=== PATIENT | male | born 1980 | race Two or more races ===

== ENCOUNTER → 2020-04-02 14:12 | Outpatient (BNVA) | payer OTHER, SELFPAY | PROVIDERS: PCP Internal Medicine; Referring Provider Internal Medicine; Visit Provider Internal Medicine Gastroenterology | DX: Z76.89 Persons encountering health services in other specified circumstances (principal) ==

== ENCOUNTER 2020-04-05 10:13 | Outpatient (REF) | payer OTHER, SELFPAY ==
[2020-04-05 11:32] LABS: MANUAL DIFF FLAG NO
[2020-04-05 11:47] LABS: Basophils Percent Auto 0.5 % (0-2); Eosinophils Absolute Auto 0.1 X10*3/uL (0.0-0.4); Eosinophils Percent Auto 1.5 % (0-4); Hematocrit 43.5 % (42-52); Hemoglobin 14.3 g/dl (14.0-18.0); Imm Gran Abs Auto 0.01 X10*3/uL (0.00-0.03); Imm Gran Pct Auto 0.2 % (0.0-0.4); Lymphocytes Absolute Auto 1.1 X10*3/uL (1.2-4.9); Lymphocytes Percent Auto 28.1 % (20-40); Mean Corpuscular HGB Conc 32.9 g/dl (31.0-36.0); Mean Corpuscular Hemoglobin 27.7 pg (27.0-33.0); Mean Corpuscular Volume 84.3 fL (80-98); Monocytes Absolute Auto 0.5 X10*3/uL (0.1-1.2); Monocytes Percent Auto 12.3 % (2-11); Neutrophils Absolute Auto 2.3 X10*3/uL (2.0-8.3); Neutrophils Percent Auto 57.4 % (45-73); Platelet Count 336 X10*3/uL (160-400); Red Blood Count 5.16 X10*6/uL (4.60-5.80); Red Cell Distribution Width 12.2 % (11.0-16.0); White Blood Count 4.1 X10*3/uL (4.8-10.8)
[2020-04-05 11:50] LABS: Glucose Urine UA NEG (NEG); Leukocyte Esterase Urine NEG (NEG); Nitrite Urine NEG (NEG); PH 7.5 (5.0-8.0); Specific Gravity - Urine 1.015 (1.005-1.025); Urine Blood NEG (NEG); Urine Ketones NEG (NEG); Urine Protein NEG (NEG-TRACE)
[2020-04-05 11:53] LABS: Appearance Urine HAZY; Color Urine YELLOW
[2020-04-05 12:12] LABS: Alanine Aminotransferase 23 U/L (0-40); Albumin Level 4.5 g/dL (3.5-5.0); Alkaline Phosphatase 75 U/L (39-117); Anion Gap 13 (12-20); Aspartate Amino Transferase 21 U/L (5-37); Bilirubin Direct 0.3 mg/dL (0.0-0.5); Bilirubin Total 0.8 mg/dL (0.0-1.0); Blood Urea Nitrogen 13 mg/dL (9-16); C Reactive Protein 0.12 mg/dL (< or = 0.50); Calcium 9.8 mg/dL (8.4-10.2); Carbon Dioxide 32 mmol/L (22-29); Chloride 101 mmol/L (96-108); Estimated Glomerular Filt Rate > 60; Glucose Random 88 mg/dL (60-115); Potassium 4.5 mmol/l (3.3-5.1); Sodium 141 mmol/L (135-145); Total Protein 7.7 g/dL (6.5-8.0)
[2020-04-05 12:21] LABS: Ferritin 201 ng/mL (20-250)
[2020-04-05 12:33] LABS: Hepatitis A Antibody IgG Nonreactive (Nonreactive); ~Hepatitis A Antibody IgG 0.55 S/CO (0.00-0.99)
[2020-04-05 12:37] LABS: HBc Num1 0.07 S/CO (0.00-0.79); HBsAGNum1 0.23 S/CO (0.00-0.99); Hepatitis B Core Antibody Nonreactive (Nonreactive); Hepatitis B Surface Antigen Negative (Negative)
[2020-04-05 12:38] LABS: HBS Num1 > 1000.00 mIU/mL (0-7.99); ~HepC Num1 0.07 S/CO (0.00-0.79); ~Hepatitis B Surface Antibody REACTIVE (Nonreactive); ~Hepatitis C Antibody Nonreactive (Nonreactive)
[2020-04-08 12:47] LABS: Transglutaminase IgA 1 U/mL
[2020-05-03 16:25] LABS: CT PCR NOT DETECTED (Not Detect.); NG PCR NOT DETECTED (Not Detect.)
== END 2020-04-05 10:14 | disposition home or self-care (01) ==
LOC: HO.LAB 10:13
PROVIDERS: PCP Internal Medicine; Visit Provider Internal Medicine Gastroenterology
DX: K85.90 Acute pancreatitis without necrosis or infection, unspecified (principal); R10.33 Periumbilical pain; R30.0 Dysuria
CPT/HCPCS: 36415; 80048; 80076; 81003; 82728; 83516; 85025; 86140; 86704; 86706; 86708; 86803; 87340; 87491; 87591

== ENCOUNTER 2020-04-30 17:47 | Outpatient (REF) | payer OTHER, SELFPAY ==
[2020-04-30 18:07] LABS: MANUAL DIFF FLAG NO
[2020-04-30 18:11] LABS: Basophils Percent Auto 0.5 % (0-2); Eosinophils Absolute Auto 0.1 X10*3/uL (0.0-0.4); Eosinophils Percent Auto 1.4 % (0-4); Hemoglobin 13.5 g/dl (14.0-18.0); Imm Gran Abs Auto 0.01 X10*3/uL (0.00-0.03); Imm Gran Pct Auto 0.2 % (0.0-0.4); Lymphocytes Absolute Auto 1.7 X10*3/uL (1.2-4.9); Lymphocytes Percent Auto 30.9 % (20-40); Mean Corpuscular HGB Conc 32.9 g/dl (31.0-36.0); Mean Corpuscular Hemoglobin 27.8 pg (27.0-33.0); Mean Corpuscular Volume 84.5 fL (80-98); Mean Platelet Volume 10.5 fL (9.4-12.4); Monocytes Absolute Auto 0.8 X10*3/uL (0.1-1.2); Monocytes Percent Auto 15.1 % (2-11); Neutrophils Absolute Auto 2.9 X10*3/uL (2.0-8.3); Neutrophils Percent Auto 51.9 % (45-73); Platelet Count 316 X10*3/uL (160-400); Red Blood Count 4.85 X10*6/uL (4.60-5.80); White Blood Count 5.6 X10*3/uL (4.8-10.8)
== END 2020-04-30 17:48 | disposition home or self-care (01) ==
LOC: HO.LAB 17:47
PROVIDERS: Absent Provider Internal Medicine Gastroenterology; PCP Internal Medicine; Visit Provider Internal Medicine
DX: D72.821 Monocytosis (symptomatic) (principal)
CPT/HCPCS: 36415; 85025

== ENCOUNTER 2020-05-03 13:23 | Outpatient (REF) | payer OTHER, SELFPAY ==
[2020-05-11 21:28] LABS: Calprotectin, Fecal 21 mcg/g
== END 2020-05-03 13:24 | disposition home or self-care (01) ==
LOC: HO.LNP 13:23
PROVIDERS: Visit Provider Internal Medicine Gastroenterology
DX: R10.33 Periumbilical pain (principal); K85.90 Acute pancreatitis without necrosis or infection, unspecified
CPT/HCPCS: 83993; 87338

== ENCOUNTER → 2020-07-30 15:05 | Outpatient (BNVA) | payer OTHER, SELFPAY | PROVIDERS: PCP Internal Medicine; Visit Provider Internal Medicine Gastroenterology ==

== ENCOUNTER → 2020-08-20 08:35 | Outpatient (BNVA) | payer OTHER, SELFPAY | PROVIDERS: PCP Internal Medicine; Visit Provider Internal Medicine Gastroenterology ==

== ENCOUNTER 2020-09-09 08:09 | Outpatient (REF) | payer OTHER, SELFPAY ==
--- NOTE | ~2020-09-09 | US_ITS ---
EXAMINATION: US ABDOMEN COMPLETE CLINICAL INFORMATION: Periumbilical pain, abdominal pain. History of pancreatitis. COMPARISON: CT abdomen with intravenous contrast dated 10/12/2018. TECHNIQUE: Real-time imaging of the abdominal viscera. Ultrasound of the right lower quadrant was also performed. FINDINGS: PANCREAS: Normal. ABDOMINAL AORTA: The proximal, mid, and distal segments are normal in caliber. INFERIOR VENA CAVA: Visualized portions are normal. LIVER: Liver echotexture is slightly increased probably representing fatty infiltration. The liver is normal in size. The liver contour is normal. No focal hepatic lesion. There is no intrahepatic biliary duct dilatation seen. GALLBLADDER: Normal. The gallbladder is physiologically distended without evidence of stones, sludge, polyps, wall thickening or pericholecystic fluid. COMMON BILE DUCT: Normal in caliber measuring 0.29 cm in diameter. RIGHT KIDNEY: Normal. No hydronephrosis. No renal calculi or focal parenchymal lesions. The kidney measures 11.7 cm in maximum dimension. LEFT KIDNEY: Normal. No hydronephrosis. No renal calculi or focal parenchymal lesions. The kidney measures 12.3 cm in maximum dimension. SPLEEN: Normal. The spleen measures 10.7 cm in maximum dimension. FREE FLUID: None. US/US abdomen complete IMPRESSION: Slightly echogenic liver probably representing fatty infiltration otherwise unremarkable exam.
== END 2020-09-09 08:10 | disposition home or self-care (01) ==
LOC: HO.US 08:09
PROVIDERS: Visit Provider Internal Medicine Gastroenterology
DX: R10.33 Periumbilical pain (principal); K85.90 Acute pancreatitis without necrosis or infection, unspecified
CPT/HCPCS: 76700

== ENCOUNTER → 2020-12-31 11:09 | Outpatient (BNVA) | payer OTHER, SELFPAY | PROVIDERS: PCP Internal Medicine; Visit Provider Internal Medicine Gastroenterology ==

== ENCOUNTER 2021-04-09 16:56 | Outpatient (REF) | payer OTHER, SELFPAY ==
--- NOTE | ~2021-04-09 | XR_ITS ---
EXAMINATION: XR CHEST CLINICAL INFORMATION: Chest pain COMPARISON: None TECHNIQUE: 2 views of the chest were obtained. FINDINGS: No significant abnormality is noted involving the heart, lungs, mediastinum, bony thorax or soft tissues. XR/XR chest 2V IMPRESSION: Unremarkable examination.
== END 2021-04-09 16:57 | disposition home or self-care (01) ==
LOC: HO.XRAY 16:56
PROVIDERS: Visit Provider Internal Medicine
DX: R07.89 Other chest pain (principal)
CPT/HCPCS: 71046

== ENCOUNTER 2021-07-14 09:08 | Outpatient (REF) | payer OTHER, SELFPAY ==
[2021-07-14 10:53] LABS: Lipase 39 U/L (8-78)
== END 2021-07-14 09:09 | disposition home or self-care (01) ==
LOC: HO.LAB 09:08
PROVIDERS: PCP Internal Medicine; Visit Provider Nurse Practitioner Acute Care
DX: R10.9 Unspecified abdominal pain (principal)
CPT/HCPCS: 36415; 83690

== ENCOUNTER 2021-09-01 09:58 | Outpatient (REF) | payer OTHER, SELFPAY ==
--- NOTE | ~2021-09-01 | US_ITS ---
EXAMINATION: US COMPLETE ABDOMEN WITH LIVER ELASTOGRAPHY CLINICAL INFORMATION: Severe right abdominal pain. COMPARISON: None. TECHNIQUE: Real-time imaging of the abdominal viscera. Noninvasive ultrasound liver fibrosis assessment is performed using [employer] ElastPQ point quantification shear wave elastography (2D-SWE) with a C5-2 MHz transducer. Multiple elastography samples are obtained. FINDINGS: PANCREAS: The pancreas is obscured by overlying gas. ABDOMINAL AORTA: The proximal, middle, and distal aortic segments are normal in caliber. INFERIOR VENA CAVA: Visualized portions are normal. LIVER: The liver demonstrates normal size, contour and mildly increased echogenicity. No focal lesion or intrahepatic biliary duct dilatation. The right lobe measures 14.9 cm in length. The left lobe measures 9.0 cm in length. Portal flow is hepatopedal. Shear wave liver elastography median stiffness is 2.06 m/s (reference: normal median stiffness is 1.3 m/s or less). IQR/median stiffness to assess sampling precision is 0.15 (reference: good quality data set is IQR/median stiffness of 0.15 or less). GALLBLADDER: Normal. The gallbladder is physiologically distended without evidence of stones, sludge, polyps, wall thickening or pericholecystic fluid. COMMON BILE DUCT: Normal in caliber measuring 0.3 cm in diameter. RIGHT KIDNEY: Normal. No hydronephrosis. No renal calculi or focal parenchymal lesions. The kidney measures 13.1 cm in maximum dimension. LEFT KIDNEY: Normal. No hydronephrosis. No renal calculi or focal parenchymal lesions. The kidney measures 13.0 cm in maximum dimension. SPLEEN: Normal. The spleen measures 10.9 cm in maximum dimension. FREE FLUID: None. US/US abdomen comp w elastography IMPRESSION: 1. Mild hepatic steatosis. No focal lesion seen. 2. The rest of the abdominal ultrasound is unremarkable. 3. Liver elastography: Median liver stiffness measures 2.06 m/s which correlates to cACLD suggestive. REFERENCE: Society of Radiologists in Ultrasound Liver Stiffness Thresholds (2020): LIVER STIFFNESS THRESHOLDS: *Liver Stiffness equal or less than 1.3 m/s: High probability of being normal. *Liver Stiffness less than 1.7 m/s: In the absence of other known clinical signs, rules out compensated advanced chronic liver disease. *Liver Stiffness 1.7-2.1 m/s: Suggestive of compensated advanced chronic liver disease but need further test for confirmation. *Liver Stiffness over 2.1 m/s: Rules in compensated advanced chronic liver disease. *Liver Stiffness over 2.4 m/s: Suggestive of clinically significant portal hypertension. QUALITY OF DATA SET: *IQR/Median value equal or less than 0.15 implies a quality data set. *IQR/Median value over 0.15 implies a poor quality data set. SIGNIFICANT CHANGE FROM PRIOR EXAM: Significant change if liver stiffness measurement is 10% or greater from prior exam. OTHER CONSIDERATIONS: The stage of liver fibrosis may be overestimated in the setting of acute hepatitis, liver inflammation, elevated liver function tests, hepatic vascular congestion, obstructive cholestasis, non-fasting state, and infiltrative diseases such as amyloidosis and lymphoma. In some patients with NAFLD, the liver stiffness thresholds for compensated advanced chronic liver disease may be lower. In causes other than viral hepatitis and NAFLD, liver stiffness thresholds are not well established.
== END 2021-09-01 09:59 | disposition home or self-care (01) ==
LOC: HO.US 09:58
PROVIDERS: PCP Nurse Practitioner Acute Care; Visit Provider Nurse Practitioner Acute Care
DX: R10.31 Right lower quadrant pain (principal)
CPT/HCPCS: 76705; 76981

== ENCOUNTER 2021-12-16 08:05 | Outpatient (REF) | payer OTHER, SELFPAY ==
--- NOTE | 2021-12-16 08:10 | ECG_ITS ---
Test Reason : CP Blood Pressure : / mmHG Vent. Rate : 062 BPM Atrial Rate : 062 BPM P-R Int : 216 ms QRS Dur : 090 ms QT Int : 396 ms P-R-T Axes : 034 052 026 degrees QTc Int : 401 ms Sinus rhythm with 1st degree A-V block Otherwise normal ECG No previous ECGs available Referred By: Ciara Moctezuma Electronically Signed By:JEFE LOUISE
[2021-12-16 08:21] LABS: MANUAL DIFF FLAG NO
[2021-12-16 09:11] LABS: Basophils Percent Auto 0.5 % (0-2); Eosinophils Absolute Auto 0.1 X10*3/uL (0.0-0.4); Eosinophils Percent Auto 2.1 % (0-4); Hemoglobin 13.5 g/dl (14.0-18.0); Lymphocytes Absolute Auto 1.5 X10*3/uL (1.2-4.9); Lymphocytes Percent Auto 35.3 % (20-40); Mean Corpuscular HGB Conc 32.9 g/dl (31.0-36.0); Mean Corpuscular Hemoglobin 27.7 pg (27.0-33.0); Mean Corpuscular Volume 84.2 fL (80.0-98.0); Monocytes Absolute Auto 0.6 X10*3/uL (0.1-1.2); Monocytes Percent Auto 13.1 % (2-11); Neutrophils Absolute Auto 2.1 x10*3/uL (2.0-8.3); Platelet Count 354 X10*3/uL (160-400); Red Blood Count 4.87 X10*6/uL (4.60-5.80); Red Cell Distribution Width 12.5 % (11.0-16.0); White Blood Count 4.2 X10*3/uL (4.8-10.8)
[2021-12-16 09:43] LABS: Alanine Aminotransferase 23 U/L (0-40); Albumin Level 4.4 g/dL (3.5-5.0); Alkaline Phosphatase 77 U/L (39-117); Anion Gap 14 (12-20); Aspartate Amino Transferase 30 U/L (5-37); Bilirubin Total 0.9 mg/dL (0.0-1.0); Blood Urea Nitrogen 11 mg/dL (9-16); Calcium 9.7 mg/dL (8.4-10.2); Carbon Dioxide 31 mmol/L (22-29); Chloride 102 mmol/L (96-108); Cholesterol 161 mg/dL; Estimated Glomerular Filt Rate > 60; Glucose Fasting 96 mg/dL (60-99); HDL Cholesterol 46 mg/dL; LDL Cholesterol Calculated 105 mg/dl; Potassium 4.5 mmol/L (3.3-5.1); Sodium 142 mmol/L (135-145); Total Protein 7.5 g/dL (6.5-8.0); Triglycerides 50 mg/dL
[2021-12-16 10:04] LABS: Vitamin D 25-OH Total 22.4 ng/mL (>30)
[2021-12-16 10:14] LABS: Folate 14.2 ng/mL (> or = 4.0); Vitamin B12 381 pg/mL (200-900)
== END 2021-12-16 08:06 | disposition home or self-care (01) ==
LOC: HO.LAB 08:05
PROVIDERS: PCP Internal Medicine; Visit Provider Internal Medicine
DX: Z00.00 Encounter for general adult medical examination without abnormal findings (principal); R07.89 Other chest pain; D64.9 Anemia, unspecified; E53.8 Deficiency of other specified B group vitamins; E55.9 Vitamin D deficiency, unspecified; E78.5 Hyperlipidemia, unspecified
CPT/HCPCS: 36415; 80053; 80061; 82306; 82607; 82746; 85025; 93005

== ENCOUNTER 2022-04-30 12:40 | Outpatient (REF) | payer OTHER, SELFPAY ==
[2022-04-30 17:57] LABS: HIV AB/AG Nonreactive (Nonreactive); HIV Num 1 0.07 S/CO (0.00-0.99)
[2022-05-01 11:04] LABS: ~HepC Num1 0.07 S/CO (0.00-0.79); ~Hepatitis C Antibody Nonreactive (Nonreactive)
== END 2022-04-30 12:41 | disposition home or self-care (01) ==
LOC: HO.LNP 12:40
PROVIDERS: Visit Provider Pathology Anatomic Pathology & Clinical Pathology
DX: Z11.4 Encounter for screening for human immunodeficiency virus [HIV] (principal); Z77.21 Contact with and (suspected) exposure to potentially hazardous body fluids
CPT/HCPCS: 86803

== ENCOUNTER 2022-10-31 08:25 | Outpatient (REF) | payer OTHER, SELFPAY | END 2022-10-31 08:26 | disposition home or self-care (01) | LOC: HO.LAB 08:25 | PROVIDERS: PCP Internal Medicine; Visit Provider Internal Medicine | DX: R10.13 Epigastric pain (principal); D64.9 Anemia, unspecified; E53.8 Deficiency of other specified B group vitamins; E78.5 Hyperlipidemia, unspecified; E55.9 Vitamin D deficiency, unspecified | CPT/HCPCS: 36415; 80053; 80061; 82306; 82607; 82746; 83540; 85025 ==

== ENCOUNTER 2023-11-22 12:16 | Outpatient (AMB) | payer OTHER, SELFPAY ==
--- NOTE | 2023-11-22 12:20 | MHC.PC.OV ---
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 morphine Adverse Reaction (Intermediate, Verified 11/22/23 12:31) Weakness Medication List - Last Reconciled 11/22/23 by Ciara Moctezuma MD No Known Home Meds Tobacco use date assessed: 11/22/23 Dental Screening Dental Screen Date: 11/22/23 Did you have a dental visit in the last 12 months?: No Did you have a dental problem in the last 6 months where you did not have access to dental care?: No Was dental information given to patient?: Patient has dentist HPI HPI Comments History of Present Illness Details This is a 43-year-old male complaining of headaches that happens at least 4 times a week. Headaches are bilateral and declines any neurological deficit associated with it. He does not sleep well. I will start him on amitriptyline at bedtime and use sumatriptan as needed. Also complains of low back pain radiating to the right leg and associated with right leg numbness. Has not tried physical therapy therefore I will send him. No fever, bowel or bladder incontinence. He is obese with a BMI of 34.9 and was advised to diet and exercise. [facility] Medical History Epigastric pain Chest wall pain B12 deficiency Hypovitaminosis D Laceration of finger of left hand Neck pain Monocytosis Surgical History Hx of circumcision History of lumbar fusion History of appendectomy Family History Father Diabetes Mother Diabetes Paternal Grandfather CAD (coronary artery disease) Pacemaker Maternal Aunt Breast cancer Social History Household Members: Spouse and Family Housing: House Are you a primary day care assistant to a significant other at home: No Do you presently have visiting nurse or other home services: No Alcohol intake: former Patient Tobacco Use Status: Former Tobacco user Tobacco use type: Cigarette e-Cigarette/Vaping Use: Never Used Second Hand Smoke Exposure: No service: No Current occupational status: employed Current occupational exposures/hazards: No Cognitive needs: No Hearing needs: No Vision needs: No Questionnaire PHQ-9 Over the last 2 weeks, how often have you been bothered by any of the following problems? 1. Little interest or pleasure in doing things: not at all 2. Feeling down, depressed, or hopeless: not at all 3. Trouble falling or staying asleep, or sleeping too much: not at all 4. Feeling tired or having little energy: not at all 5. Poor appetite or overeating: not at all 6. Feeling bad about yourself - or that you are a failure or have let yourself or your family down: not at all 7. Trouble concentrating on things, such as reading the newspaper or watching television: not at all 8. Moving or speaking so slowly that other people could have noticed. Or the opposite - being so fidgety or restless that you have been moving around a lot more than usual: not at all 9. Thoughts that you would be better off or of hurting yourself in some way: not at all Total score: 0 Depression Screening Interpretation: Negative Depression Screening Done: Yes 58108 - PHQ-9 Billing: Yes Source: Developed by Drs. Thang Dobson, Jyoti Parkinson, Rosendo Xavier and colleagues, with an educational manan from [employer]. Thrive Questionnaire Date Thrive assessed: 11/22/23 I am a: Patient What is your living situation today?: I have a steady place to live Within the past 12 months, did the food you bought not last and you didn't have the money to get more?: Never true Within the past 12 months, did you worry whether your food would run out before you got money to buy more?: Never true Do you have trouble paying for medicines?: No Do you have trouble getting transportation to medical appointments?: No Do you have trouble paying your heating and electricity bill?: No Do you have trouble taking care of your child, family member or friend?: No Do you have trouble with day-to-day activities such as bathing, preparing meals, shopping, managing finances, etc.?: No Are you currently unemployed and looking for a job?: No Are you interested in more education?: No Please select the resources that you would like help with: None Currently or been in a relationship where the following occur: No concerns reported THRIVE Score: 0 AUDIT C Alcohol Use Questionnaire (AUDIT-C) 1. How often do you have a drink containing alcohol?: Never Total Score: 0 Score Reviewed/Action Taken: No LETTY-7 AMB Questionnaire LETTY-7 Date LETTY - 7 assessed: 11/22/23 Feeling nervous, anxious, or on edge: 0 = Not at all Not being able to stop or control worryin = Not at all Worrying too much about different things: 0 = Not at all Trouble relaxin = Not at all Being so restless that it is hard to sit still: 0 = Not at all Becoming easily annoyed or irritable: 0 = Not at all Feeling afraid as if something awful might happen: 0 = Not at all Total LETTY-7 score (0-4 normal; 5-9 mild; 10-14 moderate; 15-21 severe): 0 Source: Developed by Drs. Thang Dobson, Jyoti Parkinson, Rosendo Xavier and colleagues, with an educational manan from [employer]. LETTY-7 Assessment Billing LETTY-7 Assessment Tool: LETTY-7 Assessment 94995 Review of Systems Const All systems reviewed & are unremarkable except as noted in HPI and below Card Denies chest pain at rest, Denies chest pain with activity, Denies edema, Denies irregular heart rhythm, Denies claudication, Denies dyspnea, Denies dyspnea on exertion, Denies orthopnea, Denies paroxysmal nocturnal dyspnea and Denies slow heart rate Resp Denies cough, Denies dyspnea and Denies dyspnea on exertion Musc Reports back pain Physical exam (Primary Care) Vital Signs: Last Vital Signs BP 118/82 11/22/23 12:24 BMI result Body Mass Index 34.9 BMI Assessment/Plan discussion: High BMI High, discussed plan: lifestyle, weight reduction, dietary and physical activity Tobacco/Smoking Status: Tobacco use Status Tobacco use date assessed 11/22/23 11/22/23 12:28 Patient Tobacco Use Status Former Tobacco user 11/22/23 12:28 Tobacco use type Cigarette 11/22/23 12:28 e-Cigarette/Vaping Use Never Used 11/22/23 12:28 PHQ-9: PHQ-9 Score PHQ-9: Total score 0 11/22/23 12:35 Depression Screening Interpretation: Negative Thrive Assessment: Date of Thrive Assessment Date Thrive assessed 11/22/23 11/22/23 12:28 Currently or been in a relationship where the following occur: No concerns reported Resp Effort & Inspection: normal respiratory effort Auscultation: clear to auscultation bilaterally Cardio Jugular venous distension: no JVD Rate: regular rate Rhythm: regular rhythm Heart sounds: S1 normal heart sound present and S2 normal heart sound present Extrem General: Yes full ROM Assessment and Plan Assessment & Plan (1) Headache: Code(s): R51.9 - Headache, unspecified Qualifiers: Headache type: tension-type Headache chronicity pattern: chronic headache Intractability: not intractable Qualified Code(s): G44.229 - Chronic tension-type headache, not intractable Plan: Start sumatriptan as needed. (2) Right sided sciatica: Code(s): M54.31 - Sciatica, right side Plan: Start nabumetone as needed. Start physical therapy. (3) Insomnia: Code(s): G47.00 - Insomnia, unspecified Plan: Start amitriptyline. (4) Obesity (BMI 30.0-34.9): Code(s): E66.9 - Obesity, unspecified Plan: Start diet and exercise. BMI goal is less than 30. Orders: Orders PT Evaluation and Treatment Today M54.31 - Sciatica, right side Medications: New nabumetone 750 mg PO BID PRN 60 tabs 0RF pain 30 days amitriptyline 10 mg PO BEDTIME 30 tabs 3RF 30 days sumatriptan succinate do not exceed 8 doses per 24 hrs 25 mg PO Q2-4H PRN 9 tabs 2RF migraine headache 30 days Coding Level of Care Code Est Pt Level 4 (77338) Complex EM visit Add On G2211 Diagnoses Chronic tension-type headache, not intractable G44.229 Headache type: tension-type Headache chronicity pattern: chronic headache Intractability: not intractable Right sided sciatica M54.31 Insomnia G47.00 Obesity (BMI 30.0-34.9) E66.9 Additional Codes LETTY-7 Assessment Billing - LETTY-7 Assessment Tool: LETTY-7 Assessment 07328 ([id number]) Time Spent (min) 22
[2023-11-22 12:24] VITALS: BP 118/82; BMI 34.9
== END 2023-11-22 12:41 | disposition home or self-care (01) ==
PROVIDERS: PCP Internal Medicine; Visit Provider Internal Medicine
DX: G44.229 Chronic tension-type headache, not intractable (principal); M54.31 Sciatica, right side; G47.00 Insomnia, unspecified; E66.9 Obesity, unspecified; Z68.34 Body mass index [BMI] 34.0-34.9, adult
CPT/HCPCS: 99214; G2211

== ENCOUNTER 2024-03-20 16:27 | Outpatient (AMB) | payer OTHER, SELFPAY ==
--- NOTE | 2024-03-20 16:48 | MHC.PC.OV ---
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 morphine Adverse Reaction (Intermediate, Verified 03/20/24 17:13) Weakness Medication List - Last Reconciled 03/20/24 by Ciara Moctezuma MD No Known Home Meds Tobacco use date assessed: 11/22/23 Dental Screening Dental Screen Date: 11/22/23 HPI HPI Comments History of Present Illness Details The patient is a 43-year-old male presenting for his physical exam. He complaints of chest pain localized to the middle of the chest and is experienced intermittently, including during activities such as walking. The patient describes the sensation as feeling like the heart jumps. There is no specific history of trauma or injury associated with the onset. The chest pain does not have an apparent pattern and occurs unpredictably. The patient also reports difficulty with sleep, including frequent awakenings during the night and trouble falling back asleep, leading to daytime somnolence. Severely dozed off while watching TV, sitting and reading, as a passenger in a car and lying down after lunch with [place] Score Scale of 12. The patient previously underwent surgical interventions, including a lumbar fusion in 2008 and an appendectomy in 1999. There are no current medications, and an allergy to an unspecified medication (potentially omeprazole ) is noted. Family history includes diabetes in both parents and breast cancer in a maternal aunt. Previously, the patient engaged in smoking and alcohol consumption but has since discontinued both. - BMI assessed at 35.2, indicating obesity class 2; advised weight reduction. - Plan for electrocardiogram and Holter monitor to assess cardiac concerns. - Recommended fasting laboratories to include cholesterol and glucose levels. [facility] Medical History Epigastric pain Chest wall pain B12 deficiency Hypovitaminosis D Laceration of finger of left hand Neck pain Monocytosis Surgical History Hx of circumcision History of lumbar fusion History of appendectomy Family History Father Diabetes Mother Diabetes Paternal Grandfather CAD (coronary artery disease) Pacemaker Maternal Aunt Breast cancer Social History Household Members: Spouse and Family Housing: House Are you a primary career manager to a significant other at home: No Do you presently have visiting nurse or other home services: No Alcohol intake: former Patient Tobacco Use Status: Former Tobacco user Tobacco use type: Cigarette e-Cigarette/Vaping Use: Never Used Second Hand Smoke Exposure: No service: No Current occupational status: employed Current occupational exposures/hazards: No Cognitive needs: No Hearing needs: No Vision needs: No Questionnaire Thrive Questionnaire Date Thrive assessed: 11/22/23 LETTY-7 AMB Questionnaire LETTY-7 Date LETTY - 7 assessed: 11/22/23 Source: Developed by Drs. Thang Dobson, Jyoti Parkinson, Rosendo Xavier and colleagues, with an educational manan from [employer]. Review of Systems Const All systems reviewed & are unremarkable except as noted in HPI and below Card Denies chest pain at rest, Denies chest pain with activity, Denies edema, Denies irregular heart rhythm, Denies claudication, Denies dyspnea, Denies dyspnea on exertion, Denies orthopnea, Denies paroxysmal nocturnal dyspnea and Denies slow heart rate Resp Denies cough, Denies dyspnea and Denies dyspnea on exertion GI Denies abdominal pain, Denies change in bowel habits, Denies excessive flatus, Denies nausea and Denies vomiting Physical exam (Primary Care) Vital Signs: Last Vital Signs BP 120/82 03/20/24 16:49 BMI result Body Mass Index 35.2 BMI Assessment/Plan discussion: High BMI High, discussed plan: lifestyle, weight reduction, dietary and physical activity Tobacco/Smoking Status: Tobacco use Status Tobacco use date assessed 11/22/23 03/20/24 17:01 Patient Tobacco Use Status Former Tobacco user 03/20/24 17:01 Tobacco use type Cigarette 03/20/24 17:01 e-Cigarette/Vaping Use Never Used 03/20/24 17:01 Thrive Assessment: Date of Thrive Assessment Date Thrive assessed 11/22/23 03/20/24 17:01 HENMT Head: Yes normal to inspection, Yes normocephalic and Yes atraumatic Ears: external ears normal Eyes General: appearance normal, both eyes and all related structures Eyelids: Yes eyelids normal Conjunctivae: conjunctivae normal Neck Neck: Yes normal visual inspection and Yes supple Resp Effort & Inspection: normal respiratory effort Auscultation: clear to auscultation bilaterally Cardio Jugular venous distension: no JVD Rate: regular rate Rhythm: regular rhythm Heart sounds: S1 normal heart sound present and S2 normal heart sound present GI Inspection: Yes normal to inspection Palpation (GI): Soft to palpation and nontender Auscultation: normal bowel sounds Skin General skin exam: no rashes or lesions noted Neuro General: no focal motor deficits Extrem General: Yes full ROM Psych Appearance: grossly normal Office Procedures Flu Questionnaire Does the patient have a severe egg allergy?: No Does the patient have severe life threatening allergies?: No Does the patient have a fever or illness today?: No Has the patient ever had Guillain-[place] Syndrome?: No Has the patient ever had any past reaction to a flu shot?: No Immunizations Fluarix Triv [id number] (PF) 45 mcg (15 mcg x 3)/0.5 mL IM syringe Performing Provider: Ciara Moctezuma MD [facility] Administered by: CARSON Oh on 03/20/24 17:02 Dose Route Admin Location Dispensed Lot Number Expiration Date NDC Short Order Cook 0.5 mL IM Left Deltoid 0.5 mL [id number] 10/23/24 20796-316-46 [facility] Given Date VIS Provided VIS Publication Date 03/20/24 Single Vaccine 20 Eligibility Eligibility Date Funding Source Not [facility] Eligible 03/20/24 Private Coding Level of Care Code Est Pt Level 3 (39374) Est Pt Prev Care 40-64y(47170) Diagnoses Physical exam Z00.00 Palpitations R00.2 Daytime somnolence R40.0 Time Spent (min) 31 Assessment & Plan Assessment & Plan (1) Physical exam: Code(s): Z00.00 - Encounter for general adult medical examination without abnormal findings Category: Medical (2) Palpitations: Code(s): R00.2 - Palpitations Category: Medical (3) Daytime somnolence: Code(s): R40.0 - Somnolence Category: Medical Plan - Obesity, Class 2: Discussed importance of weight management to lower BMI below 30, including potential impacts on overall health. - Chest Pain: Ordered an electrocardiogram and 24-hour Holter monitor to investigate arrhythmias or other cardiac causes. Further evaluation if abnormalities detected. - Insomnia: Plan to evaluate sleep hygiene and pattern further; consider potential interventions once cardiac workup is complete. Patient was informed and verbally consented to the use of an ambient scribe for clinic note documentation during this visit. During the visit, I acknowledged the patient's concerns regarding chest pain and explained the potential need to rule out cardiac causes via an electrocardiogram and Holter monitoring. We discussed the potential relationship between his weight and cardiovascular health, emphasizing the benefits of weight management. For sleep disturbances, I suggested initial focus on potential causes related to cardiac issues, with further exploration of sleep-related concerns to follow. Orders: Orders Influenza [id number] Immunization Today Z23 - Encounter for immunization Comprehensive [place]. Panel Fast Today Z00.00 - Encounter for general adult medical examination without abnormal findings ECG 12 lead EKG Today R00.2 - Palpitations RT home sleep study Today R40.0 - Somnolence Complete Blood Count Auto Diff Today D64.9 - Anemia, unspecified IRON PROFILE Today D64.9 - Anemia, unspecified Lipid Panel Today Z00.00 - Encounter for general adult medical examination without abnormal findings ECG holter monitor 24 hour Today R00.2 - Palpitations Patient Instructions: - Schedule appointments for fasting laboratory tests, electrocardiogram, and 24-hour Holter monitoring. - Use [id number] hydrogen peroxide ear drops as directed to manage earwax build-up. - Return for follow-up to discuss test results and assess progress on lifestyle modifications. - Monitor and log episodes of chest pain, including activity at onset, for future evaluation.
[2024-03-20 16:49] VITALS: BP 120/82; BMI 35.2
== END 2024-03-20 17:23 | disposition home or self-care (01) ==
PROVIDERS: PCP Internal Medicine; Visit Provider Internal Medicine
DX: Z00.00 Encounter for general adult medical examination without abnormal findings (principal); R00.2 Palpitations; R40.0 Somnolence

== ENCOUNTER → 2024-03-20 16:27 | Outpatient (BNVA) | payer OTHER, SELFPAY | PROVIDERS: PCP Internal Medicine; Visit Provider Internal Medicine | DX: Z00.00 Encounter for general adult medical examination without abnormal findings (principal); Z23 Encounter for immunization; R00.2 Palpitations; R40.0 Somnolence; E66.812 Obesity, class 2; Z68.35 Body mass index [BMI] 35.0-35.9, adult; R07.9 Chest pain, unspecified; G47.00 Insomnia, unspecified | CPT/HCPCS: 90471; 90656 ==

== ENCOUNTER 2024-03-25 09:14 | Outpatient (REF) | payer OTHER, SELFPAY ==
[2024-03-25 09:25] LABS: MANUAL DIFF FLAG NO
[2024-03-25 09:35] LABS: Basophils Percent Auto 0.6 % (0-2); Eosinophils Absolute Auto 0.1 X10*3/uL (0.0-0.4); Eosinophils Percent Auto 2.2 % (0-4); Hematocrit 42.1 % (42.0-52.0); Hemoglobin 14.3 g/dl (14.0-18.0); Imm Gran Abs Auto 0.02 X10*3/uL (0.00-0.03); Imm Gran Pct Auto 0.4 % (0.0-0.4); Lymphocytes Absolute Auto 1.6 X10*3/uL (1.2-4.9); Lymphocytes Percent Auto 32.5 % (20-40); Mean Corpuscular Hemoglobin 28.4 pg (27.0-33.0); Mean Corpuscular Volume 83.5 fL (80.0-98.0); Mean Platelet Volume 10.2 fL (9.4-12.4); Monocytes Absolute Auto 0.7 X10*3/uL (0.1-1.2); Monocytes Percent Auto 13.7 % (2-11); Neutrophils Absolute Auto 2.5 x10*3/uL (2.0-8.3); Neutrophils Percent Auto 50.6 % (45-73); Platelet Count 317 X10*3/uL (160-400); Red Blood Count 5.04 X10*6/uL (4.60-5.80); Red Cell Distribution Width 12.4 % (11.0-16.0)
[2024-03-25 10:04] LABS: Alanine Aminotransferase 40 U/L (0-40); Albumin Level 4.3 g/dL (3.5-5.0); Alkaline Phosphatase 77 U/L (39-117); Anion Gap 12 (12-20); Aspartate Amino Transferase 33 U/L (5-37); Bilirubin Total 0.7 mg/dL (0.0-1.0); Blood Urea Nitrogen 14 mg/dL (9-16); Calcium 8.9 mg/dL (8.4-10.2); Carbon Dioxide 29 mmol/L (22-29); Chloride 104 mmol/L (96-108); Cholesterol 155 mg/dL (<200); Estimated Glomerular Filt Rate > 60; Glucose Fasting 99 mg/dL (60-99); HDL Cholesterol 41 mg/dL (>40); Iron 125 mcg/dL (45-160); LDL Cholesterol Calculated 98 mg/dL (<100); Percent Iron Saturation 41 % (15-50); Potassium 3.8 mmol/L (3.3-5.1); Sodium 141 mmol/L (135-145); Total Iron Binding Capacity 308 mcg/dL (228-428); Total Protein 7.3 g/dL (6.5-8.0); Triglycerides 83 mg/dL (<150); Unsaturated Iron Binding 183 ug/dL
== END 2024-03-25 09:15 | disposition home or self-care (01) ==
LOC: HO.LAB 09:14
PROVIDERS: PCP Internal Medicine; Visit Provider Internal Medicine
DX: Z00.00 Encounter for general adult medical examination without abnormal findings (principal); D64.9 Anemia, unspecified
CPT/HCPCS: 36415; 80053; 80061; 83540; 85025

== ENCOUNTER → 2024-03-27 06:05 | Outpatient (REF) | payer OTHER, SELFPAY ==
--- NOTE | 2024-03-27 06:15 | ECG_ITS ---
Test Reason : palps Blood Pressure : / mmHG Vent. Rate : 064 BPM Atrial Rate : 064 BPM P-R Int : 230 ms QRS Dur : 094 ms QT Int : 398 ms P-R-T Axes : 042 050 016 degrees QTc Int : 410 ms Sinus rhythm with 1st degree A-V block Otherwise normal ECG When compared with ECG of 16-DEC-2021 08:08, No significant change was found Referred By: Ciara Moctezuma Electronically Signed By:Chapito Sanchez
== END ==
LOC: HO.CARD 06:05
PROVIDERS: PCP Internal Medicine; Visit Provider Internal Medicine
DX: R00.2 Palpitations (principal)
CPT/HCPCS: 93005

== ENCOUNTER → 2024-03-27 06:15 | Outpatient (BNV) | payer OTHER, SELFPAY | PROVIDERS: PCP Internal Medicine; Visit Provider Internal Medicine Cardiovascular Disease | DX: R00.2 Palpitations (principal) | CPT/HCPCS: 93010 ==

== ENCOUNTER → 2024-05-11 15:59 | Outpatient (REF) | payer OTHER, SELFPAY | LOC: HO.SL 15:59 | PROVIDERS: PCP Internal Medicine; Visit Provider Internal Medicine | DX: R40.0 Somnolence (principal); G47.33 Obstructive sleep apnea (adult) (pediatric) | CPT/HCPCS: 95806 ==

== ENCOUNTER → 2024-05-11 16:08 | Outpatient (BNV) | payer OTHER, SELFPAY | PROVIDERS: PCP Internal Medicine; Visit Provider Internal Medicine | DX: G47.33 Obstructive sleep apnea (adult) (pediatric) (principal) | CPT/HCPCS: 95806 ==

== ENCOUNTER → 2024-05-22 14:52 | Outpatient (REF) | payer OTHER, SELFPAY ==
--- OUTSIDE RECORDS SUMMARY | 2024-05-22 19:12 | XMS_ITS | Clinical Summary ---
[facility] Organization [facility] Address [address] [place] [address] Care Team Providers Care Piece Presser Name Role Phone Ciara Moctezuma MD Primary Care Provider [phone] Surgical History Surgery Date Site/Laterality Comments APPENDECTOMY PROCEDURE: DE APPENDECTOMY OTHER SURGICAL HISTORY PROCEDURE: HISTORY OTHER; COMMENT: disc surgery, low back 2 years ago CIRCUMCISION, PRIMARY PROCEDURE: HISTORICAL CIRCUMCISION OTHER SURGICAL HISTORY PROCEDURE: ---- OTHER ----; COMMENT: hist endo/colo and was normal Medical History Medical History Date Comments Sleep apnea 04/08/2011 DX:Sleep apnea Obesity, unspecified 04/08/2011 DX:Obesity, unspecified Family History Relation Name Status Comments Brother Alive Father Alive DM and alcoholi sm Mother Alive DM Social History Tobacco Use Types Packs/Day Years Used Date Smoking Tobacco: Never Smokeless Tobacco: Never Alcohol Use Standard Drinks/Week Comments No 0 (1 standard drink = 0.6 oz pur e alcohol) Sex and Gender Information Value Date Recorded Sex Assigned at Not on file Gender Identity Not on file Sexual Orientation Not on file Obstetrics History Plan of Treatment Health Maintenance Due Date Last Done Comments Hepatitis B Vaccines (1 of 3 - 19+ 3-dose series) 1998 DTaP,Tdap,and Td Vaccines (2 - Td or Tdap) 06/04/2021 06/04/2011 COVID-19 Vaccine ( - 2023-2 5 season) 2023 Influenza Vaccine (#1) 2023 02/26/2012 HIB Vaccines Aged Out No longer eligi ble based on patient's age to complete this topic HPV Vaccines Aged Out No longer eligi ble based on patient's age to complete this topic Hepatitis A Vaccines Aged Out No long er eligible based on patient's age to complete this topic IPV Vaccines Aged Out No longer eligi ble based on patient's age to complete this topic MMR Vaccines Aged Out No longer eligi ble based on patient's age to complete this topic Meningococcal ACWY Vaccine Aged Out N o longer eligible based on patient's age to complete this topic Pneumococcal Vaccine: Pediat rics (0 to 5 Years) and At-Risk Patients (6 to 64 Years) Aged Out No longer eligi ble based on patient's age to complete this topic RSV Immunization Patients Un cyndi 20 months Aged Out No longer eligible b ased on patient's age to complete this topic Varicella Vaccines Aged Out No longer eligible based on patient's age to complete this topic Care Teams Piece Presser Relationship Specialty Start Date End Date Ciara Moctezuma MD [address] [place] [address] , [address] [facility] D/B/A: [facility] [place] PCP - General 03/18/21
--- OUTSIDE RECORDS SUMMARY | 2024-05-22 19:12 | XMS_ITS | Clinical Summary ---
Demographics Address [address] [place] [address] Home Phone Preferred Language Martiniquais; Castilian Marital Status Unknown Mosque Affiliation Unknown Race Black or Neris rican Ethnic Group or Author Organization [facility] Address [address] [place] [address] Support Name Relationship Address Phone Magalys Greenwood Spouse [address] [place] [address] Care Team Providers Care Receiving Associate Store Name Role Phone Bhargavi Desai PA-C Primary Care Provider [phone] Source Comments PLEASE NOTE, if this patient is a minor, it may be UNLAWFUL to discuss sensitive information that is contained in these records (such as FAMILY PLANNING, MENTAL HEALTH or SUBSTANCE ABUSE) with the minor patient's parent or other person without the patient's specific authorization.[facility] Medications doncdts-wqfagy-l rotease (PANOKASE) 8,000-30,000- 30,000 unit per tabletIndication s:Pancreatitis Take 1 Tab by mouth 3 (three) times daily with meals. 30 Tab 6 06/27/2013 Active ranitidine (ZANTAC) 150 mg tabletIndication s:Gastritis Take 1 Tab by mouth 2 (two) times daily. 60 Tab 3 06/27/2013 Active Active Problems Problem Noted Date Diagnosed Date Pancreatitis 06/27/2013 Overview (06/27/2013): He was hospitalized in [facility] in 2012 for this Also has been seen in [facility] for same reason Social History Tobacco Use Types Packs/Day Years Used Date Smoking Tobacco: Never Alcohol Use Standard Drinks/Week Comments No 0 (1 standard drink = 0.6 oz pur e alcohol) Social Connections Answer Date Recorded Social Connections and Isolation 0 12/17/2018 Financial Resource Strain Answer Date R ecorded Financial Resource Strain 0 2018 Stress Answer Date Recorded Stress 0 12/17/2018 Physical Activity Answer Date Recorded Physical Activity 0 12/17/2018 Food Insecurity Answer Date Recorded Food 0 12/17/2018 Transportation Needs Answer Date Record ed Transportation 0 12/17/2018 Housing Stability Answer Date Recorded Housing 0 12/17/2018 Safety and Environment Answer Date Benjamin rded Safety 0 12/17/2018 Utilities Answer Date Recorded Utilities 0 12/17/2018 Employment Answer Date Recorded Employment 0 12/17/2018 Sex and Gender Information Value Date Recorded Sex Assigned at Not on file Legal Sex Male 11:49 AM PDT Gender Identity Not on file Sexual Orientation Not on file Last Filed Vital Signs Vital Sign Reading Time Taken Comments Blood Pressure 128/76 06/27/2013 4:14 PM EST Pulse 68 06/27/2013 4:14 PM EST Temperature 37.1 ??C (98.7 ??F) 06/27/2013 4:07 PM ES T Respiratory Rate 16 06/27/2013 4:07 PM EST Oxygen Saturation - - Inhaled Oxygen Concentration - - Weight 100.2 kg (221 lb) 06/27/2013 4:07 PM EST Height 175 cm (5' 8.9 ) 06/27/2013 4:07 PM EST Body Mass Index 32.73 06/27/2013 4:07 PM EST Plan of Treatment Not on file Insurance [facility] [place] MEDICAID Care Teams Receiving Associate Store Relationship Specialty Start Date End Date Bhargavi Desai PA-C [address] [place] [address] PCP - General 06/21/18
== END ==
LOC: HO.CARD 14:52
PROVIDERS: PCP Internal Medicine; Visit Provider Internal Medicine
DX: R00.2 Palpitations (principal)
CPT/HCPCS: 93225

== ENCOUNTER → 2024-05-22 14:55 | Outpatient (BNV) | payer OTHER, SELFPAY | PROVIDERS: PCP Internal Medicine; Visit Provider Internal Medicine Cardiovascular Disease | DX: R00.1 Bradycardia, unspecified (principal) | CPT/HCPCS: 93244 ==

== ENCOUNTER 2024-08-02 14:31 | Outpatient (AMB) | payer OTHER, SELFPAY ==
[2024-08-02 14:46] VITALS: BP 120/70; PULSE 78; BMI 35.2
--- NOTE | 2024-08-02 14:46 | MHC.OFFVIS ---
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 morphine Adverse Reaction (Intermediate, Verified 03/20/24 17:13) Weakness Medication List - Last Reconciled 08/02/24 by Ramiro Larson MD CPAP autoPAP 6-20 cmH2O HPI Comments Details: Hunter is here for consultation regarding palpitations. She does not have any known cardiac issues. No history of any coronary artery disease or myocardial infarction or cardiomyopathy or in fact any other cardiac issues. He states that he gets sensations of chest fluttering off and on. He can happen any time. He feels as though his heartbeats fast for few minutes and then gets better. No angina or shortness of breath. He has obstructive sleep apnea and he states he uses CPAP. He has grandfather has a pacemaker and hence he is worried about his current symptoms. [facility] Medical History Epigastric pain Chest wall pain B12 deficiency Hypovitaminosis D Laceration of finger of left hand Neck pain Monocytosis Surgical History Hx of circumcision History of lumbar fusion History of appendectomy Family History Father Diabetes Mother Diabetes Paternal Grandfather CAD (coronary artery disease) Pacemaker Maternal Aunt Breast cancer Social History Household Members: Spouse and Family Housing: House Are you a primary medicare coordinator to a significant other at home: No Do you presently have visiting nurse or other home services: No Alcohol intake: former Patient Tobacco Use Status: Former Tobacco user Tobacco use type: Cigarette e-Cigarette/Vaping Use: Never Used Second Hand Smoke Exposure: No service: No Current occupational status: employed Current occupational exposures/hazards: No Cognitive needs: No Hearing needs: No Vision needs: No Review of Systems Const Denies weakness ENT Denies dizziness Card Denies chest pain, Denies chest pain with activity, Denies syncope, Denies rapid heart rate, Denies pedal edema, Denies edema, Denies leg edema, Denies lightheadedness, Reports palpitations, Denies dyspnea, Denies dyspnea on exertion and Denies orthopnea Resp Denies cough, Denies dyspnea and Denies dyspnea on exertion GI Denies hematochezia and Denies change in stool character Musc Denies abnormal gait, Denies muscle cramps, Denies muscle weakness, Denies numbness, Denies radiating pain into limb and Denies tingling Neuro Denies abnormal gait, Denies dizziness, Denies syncope, Denies numbness, Denies tingling and Denies weakness Endo Reports palpitations Physical Exam Vital Signs: Last Vital Signs Pulse 78 08/02/24 14:46 BP 120/70 08/02/24 14:46 BMI result Body Mass Index 35.2 Const General: comfortable and no acute distress Orientation/consciousness: patient oriented x3 HEENT Other: Unremarkable Head: Yes normal to inspection Neck Neck: Yes normal visual inspection Chest Chest palpation & inspection: normal inspection of the chest Resp Auscultation: clear to auscultation bilaterally Cardio Palpation: normal PMI Heart sounds: S1 normal heart sound present, S2 normal heart sound present, no gallops, no murmurs and no rubs GI Palpation (GI): Soft to palpation Back/Spine/Pelvis Other: unremarkable Skin General skin exam: no rashes or lesions noted Neuro General: patient oriented x3 Extrem General: Yes normal to inspection Psych Mental Status: mental status grossly normal Assessment & Plan Assessment & Plan (1) Palpitations: Code(s): R00.2 - Palpitations Category: Medical Plan In the recent EKG, underlying rhythm is sinus at 64/Min; NC prolongation to 130 milliseconds; normal corrected QT; no significant ST-T changes. He had a 24 hour Holter monitor and that shows underlying sinus rhythm without any significant arrhythmias. Very rare PVCs. Sleep study reported to have severe obstructive sleep apnea. Because of his weight and sleep apnea, he has had increased risk for cardiac arrhythmias. Could be supraventricular or ventricular but more likely to be supraventricular. He states that he did not really have much palpitations during the 24 hour Holter monitor. Hence we can repeat this for 2 weeks. Echocardiogram for cardiac function. Based on the findings, we will plan further care. Patient agrees with this plan. Discussed using degree clerk. Orders: Orders CA echo transthoracic complete Today R00.2 - Palpitations ECG 14 day holter monitor Today R00.2 - Palpitations Coding Level of Care Code New Pt Level 4 (49033) Complex EM visit Add On G2211 Diagnoses Palpitations R00.2
--- OUTSIDE RECORDS SUMMARY | 2024-08-02 16:44 | XMS_ITS | Clinical Summary ---
Demographics Address [address] [place] [address] Home Phone Preferred Language Niuean; Castilian Marital Status Unknown Adventism Affiliation Unknown Race Black or Neris rican Ethnic Group or Author Organization [facility] Address [address] [place] [address] Support Name Relationship Address Phone Magalys Greenwood Spouse [address] [place] [address] Care Team Providers Care Pilot Teacher Name Role Phone Bhargavi Desai PA-C Primary Care Provider [phone] Source Comments PLEASE NOTE, if this patient is a minor, it may be UNLAWFUL to discuss sensitive information that is contained in these records (such as FAMILY PLANNING, MENTAL HEALTH or SUBSTANCE ABUSE) with the minor patient's parent or other person without the patient's specific authorization.[facility] Medications aheoxii-csvuwm-t rotease (PANOKASE) 8,000-30,000- 30,000 unit per tabletIndication s:Pancreatitis (HHS-HCC) Take 1 Tab by mouth 3 (three) times daily with meals. 30 Tab 6 06/27/2013 Active ranitidine (ZANTAC) 150 mg tabletIndication s:Gastritis Take 1 Tab by mouth 2 (two) times daily. 60 Tab 3 06/27/2013 Active Active Problems Problem Noted Date Diagnosed Date Pancreatitis (HHS-HCC) 06/27/2013 Overview (06/27/2013): He was hospitalized in [facility] in 2013 for this Also has been seen in [facility] ER for same reason Social History Tobacco [...] Plan of Treatment Not on file Insurance [facility] MEDICAID Care Teams Pilot Teacher Relationship Specialty Start Date End Date Bhargavi Desai PA-C [address] [place] [address] [facility] - General 06/21/18
--- OUTSIDE RECORDS SUMMARY | 2024-08-02 16:44 | XMS_ITS | Clinical Summary ---
Author Organization [facility] it[facility] Address [address] [place] [address] Care Team Providers Care Bench Repair Technician Name Role Phone Ciara Moctezuma MD Primary Care Provider [phone] Surgical History Surgery Date Site/Laterality Comments APPENDECTOMY PROCEDURE: OR APPENDECTOMY OTHER SURGICAL HISTORY PROCEDURE: HISTORY OTHER; [...] at Not on file Legal Sex Male 4:55 AM EST Gender Identity Not on file Sexual Orientation [...] patient's age to complete this topic Meningococcal B Vaccine Aged Out No l onger eligible based on patient's age to complete [...] age to complete this topic Care Teams Bench Repair Technician Relationship Specialty Start Date End Date Ciara Moctezuma MD [address] [place] [address] , [address] [place] [address] Physician Associ D/B/A: [facility] [place] PCP - General 03/18/21
== END 2024-08-02 15:07 | disposition home or self-care (01) ==
LOC: HO.HCS 14:31
PROVIDERS: PCP Internal Medicine; Visit Provider Internal Medicine
DX: R00.2 Palpitations (principal)
CPT/HCPCS: 99204; G2211

== ENCOUNTER → 2024-08-25 13:36 | Outpatient (REF) | payer OTHER, SELFPAY ==
--- NOTE | 2024-08-25 13:43 | CA_ITS ---
Transthoracic Echocardiogram Patient (Last, First, Middle): Hunter Greenwood M Gender: Male Date of : 1980 Age: 44 Procedure Date: 08/25/2024 Procedure Type: Transthoracic Echocardiogram Location: OP Height: 172.72 cm Weight: 97.52 kg BSA: 2.11 m2 Heart Rate: 75 bpm BP: 120 / 70 mmHg Co Chairman: SB Referring MD: Ramiro Larson MD Symptoms: R00.2 - Palpitations Study Quality: Fair ECG Rhythm: Sinus Conclusions: - Normal left ventricular size and systolic function. The visually estimated ejection fraction is between 60-65%. - There is mild septal asymmetric hypertrophy. - Normal right ventricular cavity size and systolic function. - There is mild dilatation of the ascending aorta measuring 3.50 cm. Findings Left Ventricle Normal left ventricular size and systolic function. The visually estimated ejection fraction is between 60-65%. There is no evidence of regional wall motion abnormalities. Diastolic function is normal for age. There is mild septal asymmetric hypertrophy. Right Ventricle Normal right ventricular cavity size and systolic function. Atria The left atrium is normal in size. The right atrium is mildly dilated. Aortic Valve Normal aortic valve structure and function. There is no aortic valve stenosis. There is no aortic valve regurgitation. Mitral Valve Normal mitral valve structure and function. There is no mitral valve regurgitation. There is no mitral valve stenosis. Pulmonic Valve The pulmonic valve is likely normal. Tricuspid Valve Normal tricuspid valve structure. There is no tricuspid valve regurgitation. Tricuspid regurgitation envelope is inadequate for calculation of right ventricular systolic pressure. Normal right atrial pressure. Great Vessels There is mild dilatation of the ascending aorta measuring 3.50 cm. Venous The inferior vena cava is normal in size and collapses greater than 50% with inspiration. Pericardium/Pleural There is no evidence of pericardial effusion. Prior Study Comparison No prior study available for comparison. Measurements 2D Linear Measurements IVSd: 1.22 0.6-0.9/0.6-1.0 cm LVIDd: 5.14 3.9-5.3/4.2-5.9 cm LVIDd Index: 2.44 2.4-3.2/2.2-3.1 cm/m2 LVIDs: 3.15 2.0-3.6 cm LVPWd: 0.90 0.7-1.1 cm LA Diam: 4.10 2.7-3.8/3.0-4.0 cm LAIDs Index: 1.94 1.5-2.3 cm/m2 LV Mass: 256.73 67-162/88-224 g LV Mass Index: 121.68 43-95/49-115 g/m2 LVOT Diam: 2.50 3.0+(-)1.3 cm 2D Systolic Function EF 4C: 65.70 >55% EF 2C: 71.10 >55% EF BiP: 68.10 >55% Mitral Valve MV Pk E: 0.90 MV PK A: 0.75 MV Decel Time: 203.00 E/A: 1.20 E'Lateral: 12.90 E'Medial: 7.62 E/E' Med: 11.80 E/E' Lat: 7.00 PHT: 59.00 MVA PHT: 3.73 Decel [place]: 4.44 Aortic Valve AoV Pk Bryson: 1.24 AoV Pk Grad: 6.00 KIMMIE: 4.48 LVOT LVOT Pk Bryson: 1.24 LVOT Mn Bryson: 0.83 LVOT VTI: 0.24 LVOT Pk Grad: 6.00 LVOT Mn Grad: 3.00 LVOT Diam: 2.50 LVOT Area: 4.91 Diastolic Function MV Pk E: 0.90 MV Pk A: 0.75 E/A: 1.20 E'Medial: 7.62 E/E' Med: 11.80 E' Laterial: 12.90 E/E' Lat: 7.00 Right Ventricle TAPSE (mm): 30.00 TVS' Bryson: 17.50 Tricuspid Valve RA Press: 3.00 Great Vessels Aorta Sinus of Valsalva: 3.50 2.0-3.5 cm Ao Asc: 3.50 2.1-3.4 cm Ao Arch: 2.80 Pulmonary Veins Pulm Vein S/D 1.20 Pulmonary Valve PV Pk Bryson: 1.14 Peak PV Grad: 5.00 Updated in Other Vendor System with Status of Final Chapito Sanchez MD electronically signed on 08/27/2024 9:11:02 PM with status of Final
--- OUTSIDE RECORDS SUMMARY | 2024-08-25 13:51 | XMS_ITS | Clinical Summary ---
Demographics Address [address] [place] [address] Home Phone Preferred Language Citizen Of [place]; Castilian Marital Status Unknown Yarsani Affiliation Unknown Race Black or Neris rican Ethnic Group or Author Organization [facility] Address [address] [place] [address] Support Name Relationship Address Phone Magalys Greenwood Spouse [address] [place] [address] Care Team Providers Care International Marketing Coordinator Name Role Phone Bhargavi Desai PA-C Primary Care Provider [phone] Source Comments PLEASE NOTE, if this patient is a minor, it may be UNLAWFUL to discuss sensitive information that is contained in these records (such as FAMILY PLANNING, MENTAL HEALTH or SUBSTANCE ABUSE) with the minor patient's parent or other person without the patient's specific authorization.[facility] Medications ktzaigl-sfcvkc-d rotease (PANOKASE) 8,000-30,000- 30,000 unit per tabletIndication s:Pancreatitis (HHS-HCC) Take 1 Tab by mouth 3 (three) times daily with meals. 30 Tab 6 06/27/2013 Active ranitidine (ZANTAC) 150 mg tabletIndication s:Gastritis Take 1 Tab by mouth 2 (two) times daily. 60 Tab 3 06/27/2013 Active Active Problems Problem Noted Date Diagnosed Date Pancreatitis (HHS-HCC) 06/27/2013 Overview (06/27/2013): He was hospitalized in [facility] in 2013 for this Also has been seen in [facility] ER for same reason Social History [...] Plan of Treatment Not on file Insurance [facility] MEDICAID Care Teams International Marketing Coordinator Relationship Specialty Start Date End Date Bhargavi Desai PA-C [address] [place] [address] [facility] - General 06/21/18
--- OUTSIDE RECORDS SUMMARY | 2024-08-25 13:51 | XMS_ITS | Clinical Summary ---
Author Organization [facility] Address [address] [place] [address] Care Team Providers Care Air Pollution Engineer Name Role Phone Ciara Moctezuma MD Primary Care Provider [phone] Surgical History Surgery Date Site/Laterality Comments APPENDECTOMY PROCEDURE: [place] APPENDECTOMY OTHER SURGICAL HISTORY PROCEDURE: HISTORY OTHER; [...] Td or Tdap) 06/04/2021 06/04/2011 COVID-19 Vaccine (2023-2 5 season) 2023 Influenza Vaccine (Season Ended) 2024 02/26/20 12 HIB Vaccines Aged Out No longer eligi [...] age to complete this topic Care Teams Air Pollution Engineer Relationship Specialty Start Date End Date Ciara Moctezuma MD [address] [place] [address] , [address] Physician Associ D/B/A: [facility] [place] PCP - General 03/18/21
== END ==
LOC: HO.CARD 13:36
PROVIDERS: PCP Internal Medicine; Visit Provider Internal Medicine
DX: R00.2 Palpitations (principal)
CPT/HCPCS: 93246; 93306

== ENCOUNTER → 2024-08-25 13:43 | Outpatient (BNV) | payer OTHER, SELFPAY | PROVIDERS: PCP Internal Medicine; Visit Provider Internal Medicine Cardiovascular Disease | DX: I42.2 Other hypertrophic cardiomyopathy (principal) | CPT/HCPCS: 93306 ==

== ENCOUNTER 2024-10-10 14:37 | Outpatient (AMB) | payer OTHER, SELFPAY ==
--- NOTE | 2024-10-10 14:41 | A.OFFVIS_ITS ---
Vital Signs 10/10/24 14:43 Height 5 ft 7 in Weight 229 lb 11.547 oz BMI 36.0 BP 110/64 Blood Pressure Location Lt brachial Position Sitting Pulse 74 Pulse Source Pulse Oximeter Intake Visit Reasons: follow up/ holter/ echo Avionics Mechanic Required: Yes Avionics Mechanic Language: Hospital Administrative Assistant Name: jordan/luis [id number] Accompanied by: Self / Same As Patient Allergies omeprazole Allergy (Intermediate, Verified 03/20/24 17:13) pancreatitis? morphine Adverse Reaction (Intermediate, Verified 03/20/24 17:13) Weakness Medication List - Last Reconciled 10/10/24 by Ramiro Larson MD CPAP autoPAP 6-20 cmH2O HPI Comments Details: Hunter returns for follow-up. Recently seen in consultation regarding palpitations. No known cardiac issues including coronary disease or myocardial infarction or cardiomyopathy or in fact anything else. He was describing sensations of chest fluttering off and on. However, no other symptoms like angina or shortness of breath. Has obstructive sleep apnea and using CPAP. Since last seen, he has undergone an echocardiogram and Holter monitor. He states he generally feels okay. 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 Sounds nonspecific. Not clear if related to CPAP. [facility] Medical History Epigastric pain Chest wall pain B12 deficiency Hypovitaminosis D Laceration of finger of left hand Neck pain Monocytosis Surgical History Hx of circumcision History of lumbar fusion History of appendectomy Family History Father Diabetes Mother Diabetes Paternal Grandfather CAD (coronary artery disease) Pacemaker Maternal Aunt Breast cancer Social History Household Members: Spouse and Family Housing: House Are you a primary restorative care technician to a significant other at home: No Do you presently have visiting nurse or other home services: No Alcohol intake: former Patient Tobacco Use Status: Former Tobacco user Tobacco use type: Cigarette e-Cigarette/Vaping Use: Never Used Second Hand Smoke Exposure: No service: No Current occupational status: employed Current occupational exposures/hazards: No Cognitive needs: No Hearing needs: No Vision needs: No Review of Systems Const Denies chills, Denies fatigue, Denies fever(s), Denies frequent falls, Denies weakness, Denies weight gain and Denies weight loss ENT Denies dizziness Card Denies chest pain, Denies leg edema, Denies lightheadedness, Denies palpita tions, Denies dyspnea and Denies dyspnea on exertion Resp Denies cough, Denies dyspnea and Denies dyspnea on exertion GI Denies hematochezia Musc Denies abnormal gait, Denies muscle weakness, Denies numbness, Denies radiating pain into limb and Denies tingling Neuro Denies abnormal gait, Denies dizziness, Denies frequent falls, Denies numbness, Denies tingling and Denies weakness Endo Denies fatigue and Denies palpitations Physical Exam Vital Signs: Last Vital Signs Pulse 74 10/10/24 14:43 BP 110/64 10/10/24 14:43 BMI result Body Mass Index 36.0 Const General: comfortable and no acute distress Orientation/consciousness: patient oriented x3 HEENT Other: Unremarkable Head: Yes normal to inspection Neck Neck: Yes normal visual inspection Chest Chest palpation & inspection: normal inspection of the chest Resp Auscultation: clear to auscultation bilaterally Cardio Palpation: normal PMI Heart sounds: S1 normal heart sound present, S2 normal heart sound present, no gallops, no murmurs and no rubs GI Palpation (GI): Soft to palpation Back/Spine/Pelvis Other: unremarkable Skin General skin exam: no rashes or lesions noted Neuro General: patient oriented x3 Extrem General: Yes normal to inspection Psych Mental Status: mental status grossly normal Assessment & Plan Assessment & Plan (1) Palpitations: Code(s): R00.2 - Palpitations Category: Medical (2) PAC (premature atrial contraction): Code(s): I49.1 - Atrial premature depolarization Category: Medical (3) PVC (premature ventricular contraction): Code(s): I49.3 - Ventricular premature depolarization Category: Medical Plan EKG-sinus at 64/Min; CO prolongation to 230 milliseconds; normal corrected QT; no significant ST-T changes. Echocardiogram with LVEF of 60-65%. Mild septal hypertrophy. No significant valvular findings. Holter monitor for 24 hours shows underlying sinus rhythm with no significant findings. Very rare PVCs. In the repeat study, again sinus rhythm with rare PACs/PVCs. Episodes of chest tightness correlate actually with sinus rhythm. Mobitz type one AV block during sleep hours. Sleep study reported to have severe obstructive sleep apnea. Overall, he has got rare ectopy but nothing concerning. Discussed about these. Mainly reassurance for that. With regard to the obstructive sleep apnea, he needs to use regular CPAP and possibly lose some weight. Obstructive sleep apnea does increase the possibility of cardiac arrhythmias as well as conduction system disease in the future. Otherwise, we will see him in the future as needed. Discussed using health and nutrition specialist. Discussion Notes During the consultation, the absence of concerning findings from the seo professional was discussed with the patient. The palpitations were attributed to rare extra beats which do not pose an immediate threat. The morning chest pain?s relationship to CPAP use was acknowledged, but no additional intervention was deemed necessary due to the resolution of pain post-morning activities and absence during exercise. The patient was informed to monitor for any changes or escalation in symptoms and to contact for further evaluation should these arise. Provision for contact has been extended for emergencies or worsening conditions. Patient was informed and verbally consented to the use of an ambient scribe for clinic note documentation during this visit. Patient Instructions: - Monitor for any changes in chest pain or palpitations. - Note if pain happens during physical activity and contact if this occurs. - Continue using the CPAP machine as advised. - Reach out if symptoms become more severe or concerning. - Follow up as needed. Coding Level of Care Code Est Pt Level 3 (16450) Diagnoses Palpitations R00.2 PAC (premature atrial contraction) I49.1 PVC (premature ventricular contraction) I49.3
[2024-10-10 14:43] VITALS: BP 110/64; PULSE 74; BMI 36.0
--- OUTSIDE RECORDS SUMMARY | 2024-10-10 16:56 | XMS_ITS | Clinical Summary ---
Author Organization [facility] ity Address [address] [place] [address] Care Team Providers Care Academic Advisement Director Name Role Phone Ciara Moctezuma MD Primary Care Provider [phone] Surgical History Surgery Date Site/Laterality Comments APPENDECTOMY PROCEDURE: [place] APPENDECTOMY OTHER SURGICAL HISTORY PROCEDURE: HISTORY OTHER; [...] - 2023-2 5 season) 2023 Influenza Vaccine (Season Ended) [...] age to complete this topic Care Teams Academic Advisement Director Relationship Specialty Start Date End Date Ciara Moctezuma MD [address] [place] [address] , [address] Physician Associ D/B/A: [facility] [place] PCP - General 03/18/21
== END 2024-10-10 14:55 | disposition home or self-care (01) ==
PROVIDERS: PCP Internal Medicine; Visit Provider Internal Medicine
DX: R00.2 Palpitations (principal); I49.1 Atrial premature depolarization; I49.3 Ventricular premature depolarization
CPT/HCPCS: 99213

== ENCOUNTER 2024-11-14 11:54 | Outpatient (AMB) | payer OTHER, SELFPAY ==
[2024-11-14 11:56] VITALS: BP 122/66; PULSE 65; TEMP 36.8; O2SAT 97; BMI 35.4
--- NOTE | 2024-11-14 11:56 | AM.OFFWIN_ITS ---
Intake Vital Signs 11/14/24 11:56 Height 5 ft 7 in Weight 226 lb BMI 35.4 BP 122/66 Blood Pressure Location Lt brachial Position Sitting Pulse 65 Pulse Source Pulse Oximeter Temp 98.3 F Temp Source Oral Pulse Oximetry (%) 97 Oxygen Delivery Method Room Air Intake Visit Reasons: EP-severe vertigo Intake Note: presents with severe vertigo, went to [facility] ER 2 days ago- was prescribed Hydroxyzine but didn't take it Patient Tobacco Use Status: Former Tobacco user Allergies omeprazole Allergy (Intermediate, Verified 11/14/24 11:58) pancreatitis? morphine Adverse Reaction (Intermediate, Verified 11/14/24 11:58) Weakness Do you need a note to return to daycare/school/sports/work: Yes HPI HPI Comments History of Present Illness Details History of Present Illness - The patient is a 44-year-old male pres enting with vertigo. - Vertigo began on Wednesday afternoon, tiara ding to a fall on Wednesday morning, resulting in an emergency room visit. - The patient reports dizziness with a s ensation of the room spinning and visual disturbances. - No chest pain, shortness of breath, or changes in diet or medication were noted. - Previous emergency room visit included normal EKG and lab results, with no head CT performed. - Nausea is present without vomiting or rectal bleeding. - Anxiety was mentioned but not treated with medication for vertigo. - states that he has been unsteady on his feet and the dizziness is making him fall. - He was given hydroxyzine in the ER oth erwise no new medications. - He denies drug use or alcohol use. - He denies chest pain, SOB, abd pain, v /d, recent illness, rectal bleeding, hematochezia, melena, hematuria, or bruising. Physical Exam General: Cooperative, healthy appearing, comfortable, no acute distress and well developed Orientation: Patient oriented x3 Head: Normal to inspection. Abrasion noted on the left cheek. Ears: Hearing grossly normal bilaterally. No cerumen impaction noted. Eyes: Appearance normal, both eyes and all related structures. Horizontal nystamus noted. PERRLA, EOMI bilaterally. Neck: Normal visual inspection and Yes full ROM Respiratory: Normal respiratory effort and able to speak in complete sentences. Clear to auscultation bilaterally. Cardiovascular: Regular rate and rhythm. Normal S1 and S2 Skin: No rashes or lesions noted Neuro: Patient oriented x3. CN 2-12 intact. Extremities: Normal to inspection. No edema noted. Patient was informed and verbally consented to the use of an ambient scribe for clinic note documentation during this visit. [facility] Medical History Epigastric pain Chest wall pain B12 deficiency Hypovitaminosis D Laceration of finger of left hand Neck pain Monocytosis Surgical History Hx of circumcision History of lumbar fusion History of appendectomy Family History Father Diabetes Mother Diabetes Paternal Grandfather CAD (coronary artery disease) Pacemaker Maternal Aunt Breast cancer Social History Household Members: Spouse and Family Housing: House Are you a primary hospice spiritual care coordinator to a significant other at home: No Do you presently have visiting nurse or other home services: No Alcohol intake: former Patient Tobacco Use Status: Former Tobacco user Tobacco use type: Cigarette e-Cigarette/Vaping Use: Never Used Second Hand Smoke Exposure: No service: No Current occupational status: employed Current occupational exposures/hazards: No Cognitive needs: No Hearing needs: No Vision needs: No Review of Systems Const All systems reviewed & are unremarkable except as noted in HPI and below Physical Exam Vital Signs: Last Vital Signs Temp 98.3 F 11/14/24 11:56 Pulse 65 11/14/24 11:56 BP 122/66 11/14/24 11:56 Pulse Ox 97 11/14/24 11:56 Oxygen Delivery Method Room Air 11/14/24 11:56 BMI result Body Mass Index 35.4 Assessment & Plan Assessment & Plan (1) Vertigo: Code(s): R42 - Dizziness and giddiness Plan Most likely BPPV vs anxiety vs electrolyte abnormality vs cardiac? Reviewed the discharge paperwork from [facility] on 11/12- had labs and EKG done Need ER records Plan - Meclizine was prescribed to manage vertigo symptoms. - Blood work was ordered to check and iron levels. - Follow-up with primary care is scheduled for next Wednesday. - Advised to go to the ER if he falls or remains dizzy Orders: Orders Complete Blood Count Auto Diff Today R42 - Dizziness and giddiness Comprehensive Met. Panel Today R42 - Dizziness and giddiness TSH reflex Free T4 Today R42 - Dizziness and giddiness Vitamin B12 Today R42 - Dizziness and giddiness Medications: New meclizine 25 mg PO DAILY PRN 30 tabs 0RF motion sickness Coding Level of Care Code Est Pt Level 4 (32441) Diagnoses Vertigo R42
== END 2024-11-14 12:46 | disposition home or self-care (01) ==
PROVIDERS: PCP Internal Medicine; Visit Provider Physician Assistant Medical
DX: R42 Dizziness and giddiness (principal)

== ENCOUNTER 2024-11-14 11:54 | Outpatient (REF) | payer OTHER, SELFPAY ==
[2024-11-14 16:14] LABS: MANUAL DIFF FLAG NO
[2024-11-14 16:25] LABS: Hematocrit 42.1 % (42.0-52.0); Hemoglobin 14.0 g/dl (14.0-18.0); Imm Gran Abs Auto 0.02 X10*3/uL (0.00-0.03); Imm Gran Pct Auto 0.3 % (0.0-0.4); Lymphocytes Absolute Auto 1.5 X10*3/uL (1.2-4.9); Mean Corpuscular HGB Conc 33.3 g/dl (31.0-36.0); Mean Corpuscular Hemoglobin 28.3 pg (27.0-33.0); Mean Corpuscular Volume 85.1 fL (80.0-98.0); NRBC Abs Auto 0.000 X10*3/uL (0.0-0.012); NRBC Pct Auto 0.0 /100WBC (0.0-0.2); Platelet Count 323 X10*3/uL (160-400); Red Blood Count 4.95 X10*6/uL (4.60-5.80); White Blood Count 5.9 X10*3/uL (4.8-10.8)
[2024-11-14 16:44] LABS: Anion Gap 11 (12-20); Blood Urea Nitrogen 13 mg/dL (9-16); Carbon Dioxide 30 mmol/L (22-29); Chloride 106 mmol/L (96-108); Estimated Glomerular Filt Rate > 60; Potassium 4.7 mmol/L (3.3-5.1); Sodium 142 mmol/L (135-145)
[2024-11-14 16:45] LABS: Alanine Aminotransferase 45 U/L (0-40); Albumin Level 4.6 g/dL (3.5-5.0); Alkaline Phosphatase 78 U/L (39-117); Aspartate Amino Transferase 35 U/L (5-37); Calcium 9.7 mg/dL (8.4-10.2); Total Protein 7.3 g/dL (6.5-8.0)
[2024-11-14 17:01] LABS: Vitamin B12 487 pg/mL (200-900)
== END 2024-11-14 11:55 | disposition home or self-care (01) ==
LOC: HO.HMGCLDS 11:54
PROVIDERS: PCP Internal Medicine; Visit Provider Physician Assistant Medical
DX: R42 Dizziness and giddiness (principal); H53.9 Unspecified visual disturbance; R11.0 Nausea
CPT/HCPCS: 36415; 80053; 82607; 84443; 85025

== ENCOUNTER 2025-02-21 13:25 | Outpatient (AMB) | payer OTHER, SELFPAY ==
--- NOTE | 2025-02-21 13:28 | MHC.OFFVIS ---
Vital Signs 02/21/25 13:29 Height 5 ft 7 in Weight 228 lb 6.382 oz BMI 35.8 Intake Visit Reasons: F/u Chest pains Dental Office Assistant Required: Yes Dental Office Assistant Services: Dental Office Assistant Present Dental Office Assistant Name: Oren ordonez [id number] Accompanied by: Self / Same As Patient Allergies omeprazole Allergy (Intermediate, Verified 02/21/25 13:33) pancreatitis? morphine Adverse Reaction (Intermediate, Verified 02/21/25 13:33) Weakness Medication List - Last Reconciled 02/21/25 by Juventino Espinoza NP CPAP autoPAP 6-20 cmH2O meclizine 25 mg PO DAILY PRN HPI Comments Details: This is a 44-year-old male patient coming in for reports of chest pain that is been ongoing for the past few weeks. Patient is Sami-speaking and the vocational rehabilitation administrator was used throughout the visit. Patient with a history of severe sleep apnea on CPAP therapy and obesity who was previously seen in the office for palpitations where patient underwent a Holter and an echocardiogram. Today, patient reports mid chest discomfort that can happen with exertion as well as at rest. Patient is reporting intermittent shortness of breath associated with this otherwise is denying any dizziness, orthopnea, PND, leg edema, presyncope or syncope with this. Patient otherwise with no known coronary artery disease or ischemic disease. Patient does note that he has a family history of coronary artery disease. [facility] Medical History Epigastric pain Chest wall pain B12 deficiency Hypovitaminosis D Laceration of finger of left hand Neck pain Monocytosis Surgical History Hx of circumcision History of lumbar fusion History of appendectomy Family History Father Diabetes Mother Diabetes Paternal Grandfather CAD (coronary artery disease) Pacemaker Maternal Aunt Breast cancer Social History Household Members: Spouse and Family Housing: House Are you a primary insurance healthcare representative to a significant other at home: No Do you presently have visiting nurse or other home services: No Alcohol intake: former Patient Tobacco Use Status: Former Tobacco user Tobacco use type: Cigarette e-Cigarette/Vaping Use: Never Used Second Hand Smoke Exposure: No service: No Current occupational status: employed Current occupational exposures/hazards: No Cognitive needs: No Hearing needs: No Vision needs: No Review of Systems Const Denies daytime sleepiness, Denies difficulty sleeping, Denies snoring, Denies stops breathing during sleep and Denies weakness Card Reports chest pain, Denies rapid heart rate, Denies irregular heart rhythm, Denies claudication, Denies leg edema, Denies lightheadedness, Denies palpitations, Denies dyspnea, Denies dyspnea on exertion, Denies orthopnea, Denies paroxysmal nocturnal dyspnea and Denies slow heart rate Resp Denies cough, Denies dyspnea, Denies dyspnea on exertion and Denies snoring GI Reports no additional complaints, Denies hematochezia, Denies change in stool character and Denies dyspepsia Musc Denies abnormal gait, Denies muscle weakness and Denies numbness Neuro Denies abnormal gait, Denies numbness and Denies weakness Endo Denies palpitations Physical Exam Vital Signs: BMI result Body Mass Index 35.8 Const General: cooperative, healthy appearing, comfortable and no acute distress Orientation/consciousness: patient oriented x3 HEENT Head: Yes normal to inspection Neck Neck: Yes normal visual inspection, Yes trachea midline and Yes supple Chest Chest palpation & inspection: normal inspection of the chest Resp Effort & Inspection: normal respiratory effort Auscultation: clear to auscultation bilaterally, no crackles, no rales, no rhonchi and no wheezes Cardio Jugular venous distension: no JVD Palpation: normal PMI Rate: regular rate Rhythm: regular rhythm Heart sounds: S1 normal heart sound present, S2 normal heart sound present, no click, no gallops, no murmurs and no rubs Peripheral pulses: Peripheral pulses 2+ throughout GI Inspection: Yes normal to inspection Palpation (GI): Soft to palpation Auscultation: normal bowel sounds Skin General skin exam: no rashes or lesions noted Neuro General: patient oriented x3 Extrem General: Yes normal to inspection, No no pedal edema and No calf tenderness Psych Appearance: grossly normal Mental Status: mental status grossly normal Speech and movement: Normal speech and movement present Assessment & Plan Assessment & Plan (1) Chest pain: Code(s): R07.9 - Chest pain, unspecified Category: Medical (2) PAC (premature atrial contraction): Code(s): I49.1 - Atrial premature depolarization Category: Medical (3) PVC (premature ventricular contraction): Code(s): I49.3 - Ventricular premature depolarization Category: Medical (4) JENNYFER (obstructive sleep apnea): Code(s): G47.33 - Obstructive sleep apnea (adult) (pediatric) Category: Medical Plan 08/25/2024-echo study showed a normal LV systolic function between 60-65% with mild septal asymmetric hypertrophy and mild dilation of the aorta at 3.5 cm. 08/25/2024-Holter study showed a normal sinus rhythm with rare PACs and PVCs with 1 episode of Mobitz type 1 second-degree AV block at 07:00. Patient's report of chest pain is atypical in nature however given his risk factors, we will proceed with a myocardial perfusion study to assess for ischemic changes. Most recent LDL at 98. Blood pressure today is well-controlled. Ideally, blood pressure goal less than 130/80. Patient is using CPAP therapy for severe sleep apnea. Advised compliance. Advised on heart healthy diet, regular exercise, losing weight, and aggressive management of vascular risk factors. Follow up after the stress test. In the interim, patient will call the office with any concerns or change in symptoms. Advised to seek ER care in case of exertional chest pain not resolved with rest. This note was generated using voice recognition software. While every effort has been made to ensure accuracy and proper beveller operator, there may be occasional errors that could affect the content or meaning of the described symptoms. Orders: Orders NM cardiolite stress test Today R07.9 - Chest pain, unspecified CA stress test Today R07.9 - Chest pain, unspecified Coding Level of Care Code Est Pt Level 4 (23354) Complex EM visit Add On G2211 Diagnoses Chest pain R07.9 PAC (premature atrial contraction) I49.1 PVC (premature ventricular contraction) I49.3 JENNYFER (obstructive sleep apnea) G47.33 Time Spent (min) 32 Comment Time spent in reviewing the chart, test results, assessment, counseling and documentation.
[2025-02-21 13:29] VITALS: BMI 35.8
--- OUTSIDE RECORDS SUMMARY | 2025-02-21 17:08 | XMS_ITS | Clinical Summary ---
Author Organization [facility] Address [address] [place] [address] Phone Care Team Providers Care Salesperson Men'S Furnishings Name Role Phone Ciara Moctezuma MD Primary Care Provider [phone] Allergies Active Allergy Reactions Criticality Noted Date Comments Morphine Other 11/12/2024 Medications hydrOXYzine HCL (ATARAX) 25 mg tablet Take 1 tablet (25 mg total) by mouth 4 (four) times a day for 7 days. 12 tablet 11/12/2024 Active Surgical History Surgery Date Site/Laterality Comments APPENDECTOMY PROCEDURE: [place] APPENDECTOMY OTHER SURGICAL HISTORY PROCEDURE: HISTORY OTHER; [...] Sexual Orientation Not on file Obstetrics History Last Filed Vital Signs Vital Sign Reading Time Taken Comments Blood Pressure 122/74 11/12/2024 9:30 PM EDT Pulse 60 11/12/2024 9:30 PM EDT Temperature 36.6 C (97.8 F) 11/12/2024 9:30 PM EDT Respiratory Rate 15 11/12/2024 9:30 PM EDT Oxygen Saturation 96% 11/12/2024 9:30 PM EDT Inhaled Oxygen Concentration - - Weight 102 kg (225 lb) 11/12/2024 6:11 PM EDT Height 167.6 cm (5' 6 ) 11/12/2024 6:11 PM EDT Body Mass Index 36.32 11/12/2024 6:11 PM EDT Plan of Treatment Health Maintenance Due Date Last Done Comments Colorectal Cancer Screening: Colonoscopy 1979 Hepatitis B Vaccines (1 of 3 - 19+ 3-dose series) 1998 HPV Vaccines (1 - 3-dose SCD M series) 2006 DTaP,Tdap,and Td Vaccines (2 - Td or Tdap) 06/04/2021 06/04/2011 Depression Screening 04/26/2024 Cholesterol Screening (Lipid Panel) 11/12/2024 HIV Screening 11/12/2024 Hepatitis C Screening 11/12/2024 Social Influencers of Health Screening 11/12/2024 COVID-19 Vaccine ( - 2023-2 5 season) 2024 Influenza Vaccine (#1) 2024 02/26/2012 RSV Immunization Adult Patie nts (1 - 1-dose 75+ series) 2054 HIB Vaccines Aged Out No longer eligi [...] 5 Years) and At-Risk Patients (6 to 49 Years) Aged Out No longer eligi ble based on patient's age to complete this topic RSV Immunization Patients Un cyndi 20 months Aged Out No longer eligible b ased on patient's age to complete this topic Varicella Vaccines Aged Out No longer eligible based on patient's age to complete this topic Insurance [employer] Care Teams Salesperson Men'S Furnishings Relationship Specialty Start Date End Date Ciara Moctezuma MD [facility] , [address] Physician Associ D/B/A: [facility] [place], [place] PCP - General 03/18/21
--- OUTSIDE RECORDS SUMMARY | 2025-02-21 17:08 | XMS_ITS | Clinical Summary ---
Author Organization [employer] Address [address] [facility] [address] [place] [address] Care Team Providers Care Alteration Tailor Apprentice Name Role Phone Unavailable Primary Care Provider Unavailabl e Encounters Date Type Department Care Team Description 12/15/2024 Telephone [facility] [address] [place] [address] Carl Brush MD from Last 3 Months Social History Tobacco Use Types Packs/Day Years Used Date Smoking Tobacco: Never Assessed Sex and Gender Information Value Date Recorded Sex Assigned at Not on file Legal Sex Male 10:46 AM EDT Gender Identity Not on file Sexual Orientation Not on file Plan of Treatment Health Maintenance Due Date Last Done Comments CT Colonography 1979 Colonoscopy 1979 Colorectal Cancer Screening 1979 Depression Screening 1979 FIT DNA/Cologuard 1979 FIT 1979 FOBT 1979 HIV Screening 1979 Lipid Panel 1979 SDOH Screening 1979 Sigmoidoscopy 1979 Disability Screening 1979 Alcohol/Substance Use Screening 1991 Tobacco Screening 1991 Family Planning (PISQ) 1994 HPV Vaccines (1 - Male 3-dos e series) 1994 Hepatitis C Screening 1997 DTaP/Tdap/Td Vaccines (1 - Tdap) 1998 Hepatitis B Vaccines (1 of 3 - 19+ 3-dose series) 1998 COVID-19 Vaccine (1 - 2023-2 5 season) 2024 Influenza Vaccine (#1) 2024 Zoster Vaccines (1 of 2) 2029 RSV Patients and Pa tients Aged 60 years or older (1 - 1-dose 75+ series) 2054 HIB [...] patient's age to complete this topic Meningococcal Vaccine Aged Out No inessa donald eligible based on patient's age to complete this topic Pneumococcal Vaccine: Pediat rics (0 to 5 Years) and At-Risk Patients (6 to 49) Years Aged Out No longer eligible b ased on patient's age to complete this topic RSV under 20 months Aged Out No longe r eligible based on patient's age to complete this topic Rotavirus Vaccines Aged Out No longer eligible based on patient's age to complete this topic Insurance
--- OUTSIDE RECORDS SUMMARY | 2025-02-21 17:08 | XMS_ITS | Clinical Summary ---
Demographics Address [address] [place] [address] Home Phone Preferred Language Burundian; Castilian Marital Status Unknown Faith Affiliation Unknown Race Black or Neris rican Ethnic Group or Author Organization [facility] Address [address] [place] [address] Support Name Relationship Address Phone Magalys Greenwood Spouse [address] [place] [address] Care Team Providers Care Polisher Apprentice Name Role Phone Bhargavi Desai PA-C Primary Care Provider [phone] Source Comments PLEASE NOTE, if this patient is a minor, it may be UNLAWFUL to discuss sensitive information that is contained in these records (such as FAMILY PLANNING, MENTAL HEALTH or SUBSTANCE ABUSE) with the minor patient's parent or other person without the patient's specific authorization.[facility] Medications fuulqns-ijzres-q rotease (PANOKASE) 8,000-30,000- 30,000 unit per tabletIndication s:Pancreatitis Take 1 Tab by mouth 3 (three) times daily with meals. 30 Tab 6 06/27/2013 Active ranitidine (ZANTAC) 150 mg tabletIndication s:Gastritis Take 1 Tab by mouth 2 (two) times daily. 60 Tab 3 06/27/2013 Active Active Problems Problem Noted Date Diagnosed Date Pancreatitis 06/27/2013 Overview (06/27/2013): He was hospitalized in [facility] in 2012 for this Also has been seen in [facility] ER for same reason Social History [...] 68 06/27/2013 4:14 PM EST Temperature 37.1 C (98.7 F) 06/27/2013 4:07 PM EST Respiratory Rate 16 06/27/2013 4:07 PM EST Oxygen Saturation - - Inhaled Oxygen Concentration - - Weight 100.2 kg (221 lb) 06/27/2013 4:07 PM EST Height 175 cm (5' 8.9 ) 06/27/2013 4:07 PM EST Body Mass Index 32.73 06/27/2013 4:07 PM EST Plan of Treatment Not on file Insurance [facility] MEDICAID Care Teams Polisher Apprentice Relationship Specialty Start Date End Date Bhargavi Desai PA-C [address] [place] [address] PCP - General 06/21/18
== END 2025-02-21 14:06 | disposition home or self-care (01) ==
LOC: HO.HCS 13:26
PROVIDERS: PCP Internal Medicine
DX: R07.9 Chest pain, unspecified (principal); I49.1 Atrial premature depolarization; I49.3 Ventricular premature depolarization; G47.33 Obstructive sleep apnea (adult) (pediatric)
CPT/HCPCS: 99214; G2211